=== PATIENT | female | born 1990 | race Asian ===

== ENCOUNTER 2019-03-04 14:15 | Emergency (ER) | payer MEDICAID ==
[~2019-03-04] VITALS: Ht 152.4 cm; Wt 56.6 kg
[~2019-03-04 14:15] MED LIST: CEPH500C PO
[2019-03-04 14:25] VITALS: Ht 152.4 cm; Wt 56.6 kg
[2019-03-04 18:30] VITALS: BP 118/65; PULSE 78; RESP 18
== END 2019-03-04 18:33 | disposition home or self-care (01) ==
LOC: FTE 14:15
DX: O20.9 Hemorrhage in early pregnancy, unspecified (principal); O23.41 Unspecified infection of urinary tract in pregnancy, first trimester; Z3A.01 Less than 8 weeks gestation of pregnancy
CPT/HCPCS: 36415; 76801; 76817; 80048; 81001; 84702; 85025; 85610; 85730; 86900; 86901

== ENCOUNTER 2019-03-07 07:54 | Emergency (ER) | payer MEDICAID ==
[~2019-03-07] VITALS: Ht 152.4 cm; Wt 57.1 kg
[2019-03-07 07:59] VITALS: BP 142/69; PULSE 91; RESP 18; Ht 152.4 cm; Wt 57.1 kg
== END 2019-03-07 10:11 | disposition home or self-care (01) ==
LOC: FTE 07:54
DX: O20.0 Threatened abortion (principal); Z3A.01 Less than 8 weeks gestation of pregnancy
CPT/HCPCS: 36415; 76801; 76817; 81001; 84702; 85025; Z7502